=== PATIENT | female | born 1990 | race Caucasian/White ===

== ENCOUNTER 2017-04-06 11:46 | Day surgery (SDC) | payer BC ==
[~2017-04-06 11:46] MED LIST: RINGER'S SOLUTION,LACTATED 1,000 ML IV PRN
[2017-04-06] MEDS ORDERED: RINGER'S SOLUTION,LACTATED 1,000 ML IV ONE (12:20)
[2017-04-06] MEDS ORDERED: RINGER'S SOLUTION,LACTATED 1,000 ML IV PRN (12:53)
[2017-04-06] MEDS ORDERED: PANTOPRAZOLE SODIUM 40 MG in NORMAL SALINE 100 ML IV ONE (12:53)
[2017-04-06] MEDS ORDERED: PANTOPRAZOLE SODIUM 40 MG/100 ML PIGGYBACK IV ONE (13:12)
[2017-04-06 14:03] VITALS: BP 144/85
--- NOTE | 2017-04-06 16:53 | OR ---
Operative Report - Dictated Report Narrative: Operative Report Date of operation: 04/06/2017 Preoperative diagnosis: Epigastric pain. GERD symptoms despite medication Postoperative diagnosis: Esophagitis. Hiatal hernia. Gastropathy (pathology and CLOtest pending) Operation: EGD with biopsies Surgeon: Dr Felipe Anesthesia: HALIMA MURGUIA CRNA Indications for procedure: The patient is a 26-year-old female referred by Dr. Roach. The patient has a four-month history of epigastric pain and GERD symptoms despite medication. She states she has been under a lot of stress and the symptoms were worse about a month ago. Findings: Very high anesthetic requirement. LA grade B distal esophagitis. Hiatal hernia. Gastropathy (pathology and CLOtest pending) Narrative of procedure: The patient was identified preoperatively, and prior to the administration of anesthetic a multidisciplinary timeout was observed With the patient in the recumbent position, a bite-block was placed, intravenous sedation administered, and the patient's eyes covered with a towel. The flexible fiberoptic gastroscope was advanced into the posterior pharynx which appeared normal. The supraglottic larynx appeared normal. The cords appeared normal, moved well, and opposed in the midline. The scope was advanced under direct vision into the proximal esophagus which appeared normal. The esophagus appeared freely distensible with normal mucosa. The esophageal mucosa appeared normal down to the gastroesophageal junction which was irregular and had two noncontiguous linear ulcers measuring approximately 0.7 cm in length. The GE junction appeared normally distensible. There was a sliding hiatal hernia. The scope was advanced into the stomach proper which was insufflated with air. There was kwan gastric erythema however no kylee ulcers or neoplastic-appearing lesions were appreciated including a retroflexed view of the gastric fundus which demonstrated the hiatal hernia. The scope was redirected toward the pylorus. The pylorus appeared patent. The scope was advanced into the duodenal bulb which appeared normal. The scope was advanced further to the horizontal portion of the duodenum which appeared normal, specifically the villous architecture appeared well preserved and clear bile was present. A biopsy of duodenal mucosa was obtained and submitted for pathology. The biopsy site was seen to be hemostatic. The scope was slowly withdrawn through the duodenal bulb with confirmation that no active ulcer was present. The scope was withdrawn into the stomach and data entry representative biopsies of gastric mucosa obtained for CLOtest and pathology. The biopsy sites were seen to be hemostatic. The insufflated air was removed from the stomach, and the scope withdrawn to above the GE junction which was biopsied. The biopsy site was seen to be hemostatic. The scope was then withdrawn from the patient, and the procedure terminated. The patient tolerated the anesthetic and procedure well without complication and was transferred back to the ambulatory surgery area awake and in stable condition. The patient remained stable throughout a period of postoperative observation, was able to tolerate po intake, and was up without assistance. I shared the operative findings with her, and she was given copies of the photographs which appear in the medical record. She was given a single dose of Protonix 40 mg IV prior to discharge. She was discharged home with instructions not to engage in hazardous activity today, but may return to normal activity tomorrow and advance diet as tolerated. She is to continue medications as listed in the history and physical exam. I made arrangements to contact the patient with the biopsy reports and will make further recommendation based upon that result. Reviewed and electronically signed
== END 2017-04-06 11:47 | disposition home or self-care (01) ==
LOC: AMB 11:46
PROVIDERS: ATTEND Surgery
PROC: 0DB68ZX Excision of Stomach, Via Natural or Artificial Opening Endoscopic, Diagnostic (ICD-10-PCS; 2017-04-06)
PROC: 0DB48ZX Excision of Esophagogastric Junction, Via Natural or Artificial Opening Endoscopic, Diagnostic (ICD-10-PCS; 2017-04-06)
PROC: 0DB98ZX Excision of Duodenum, Via Natural or Artificial Opening Endoscopic, Diagnostic (ICD-10-PCS; principal; 2017-04-06 12:15)
DX: K29.70 Gastritis, unspecified, without bleeding (principal); K20.9 Esophagitis, unspecified; K44.9 Diaphragmatic hernia without obstruction or gangrene; E03.9 Hypothyroidism, unspecified; E55.9 Vitamin D deficiency, unspecified; F41.1 Generalized anxiety disorder; F17.200 Nicotine dependence, unspecified, uncomplicated; Z68.38 Body mass index [BMI] 38.0-38.9, adult